=== PATIENT | female | born 1945 | race Caucasian/White ===

== ENCOUNTER 2019-01-18 16:01 | Emergency (ER) | payer MEDICARE, OTHER ==
[2019-01-18 16:45] VITALS: BP 179/83
--- NOTE | 2019-01-18 17:16 | UC ---
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 she states that in the humid weather, it is not uncommon for her legs and ankles to swell. The R is more swollen than the left. 2+ pitting edema in R ankle and 1+ in the L ankle. Denies any SOB, chest pain or pressure. also today, her systolic BP has been elevated. she started a new eye drop med for glaucoma-rocklatan and stopped Rhopressa on Monday01/14/19." -upon questioning she realizes that tthis happens with heat -she also realizes that she had pizza last night and sinhala food 2 nights ago. -denies CP/sob, no orthopnea, no PND. -swelling has decreased significantly since she has been here in the AC w/ legs elevated. -BP is always nml 120s/80s - History of Current Complaint Chief Complaint: UCGeneralIllness Stated Complaint: BILAT FEET SWELLING Time Seen by Provider: 01/18/19 17:01 Pain Intensity: 0 - Allergy/Home Medications Allergies/Adverse Reactions: Allergies Allergy/AdvReac Type Severity Reaction Status Date / Time acetazolamide Allergy See Comment Verified 01/18/19 16:58 brimonidine [From Alphagan P] Allergy See Comment Verified 01/18/19 16:58 dorzolamide Allergy See Comment Verified 01/18/19 16:58 Penicillins Allergy Unknown Verified 01/18/19 16:58 Reaction Details tetracycline Allergy Unknown Verified 01/18/19 16:58 Reaction Details pilocarpine AdvReac GI Upset Verified 01/18/19 16:58 procaine [From Novocain] AdvReac Shakes Verified 01/18/19 16:58 Home Medications: Home Medications Cholecalciferol (Vitamin D3) [Vitamin D3] 1,000 unit PO DAILY 01/18/19 [History Confirmed 01/18/19] Glucosam/Chondr/Collagn/Hyalur [Glucosamine & Chondroitin Cap] 1 cap PO DAILY [History Confirmed 01/18/19] Levothyroxine TAB* [Synthroid 25 MCG TAB*] 25 mg PO DAILY 01/18/19 [History Confirmed 01/18/19] Multivit with Calcium,Iron,Min [Multiple Vitamins For Women] 1 each PO DAILY [History Confirmed 01/18/19] Netarsudil Mesylat/Latanoprost [Rocklatan 0.02%-0.005% Eye Drp] 2.5 ml OP DAILY 01/18/19 [History Confirmed 01/18/19] Provostatin 20 mg PO DAILY 01/18/19 [History] Timolol 0.5% OPTH.KELLY* [Timoptic 0.5% Opth*] 1 drop BOTH EYES DAILY 01/18/19 [ History Confirmed 01/18/19] PMH/Surg Hx/FS Hx/Imm Hx Previously Healthy: Yes - Surgical History Surgical History: Yes Surgery Procedure, Year, and Place: L breast - Family History Known Family History: Positive: Hypertension - Social History Alcohol Use: None Substance Use Type: None Smoking Status (MU): Never Smoked Tobacco Review of Systems All Other Systems Reviewed And Are Negative: Yes Constitutional: Positive: Negative Skin: Positive: Negative Eyes: Positive: Negative ENT: Positive: Negative Respiratory: Positive: Negative Cardiovascular: Positive: Negative. Negative: Palpitations, Chest Pain Gastrointestinal: Positive: Negative Genitourinary: Positive: Negative Motor: Positive: Negative Neurovascular: Positive: Negative Musculoskeletal: Positive: Negative Neurological: Positive: Negative Psychological: Positive: Negative Is Patient Immunocompromised?: No Physical Exam Triage Information Reviewed: Yes Appearance: Well-Appearing, No Pain Distress, Well-Nourished - really very pleasant, great attitude. Vital Signs: Initial Vital Signs Temp 97.9 F 01/18/19 16:26 Pulse 56 01/18/19 16:26 Resp 16 01/18/19 16:26 BP 179/83 01/18/19 16:26 Pulse Ox 99 01/18/19 16:26 Vital Signs Reviewed: Yes Eye Exam: Normal ENT: Positive: Pharynx normal Neck exam: Normal Neck: Positive: Supple, Nontender, No Lymphadenopathy Respiratory Exam: Normal Respiratory: Positive: Chest non-tender, Lungs clear, Normal breath sounds, No respiratory distress, No accessory muscle use. Negative: Crackles, Rhonchi, Stridor, Wheezing Cardiovascular Exam: Normal Cardiovascular: Positive: RRR, No Murmur, Pulses Normal Abdominal Exam: Normal Abdomen Description: Positive: Soft Musculoskeletal: Positive: Edema @ - rt edema +1-2 mostly at ankle, left trace to +1. no erythema. cool. no dc. no weaping. CR brisk. Neurological Exam: Normal Psychological Exam: Normal Skin Exam: Normal Course/Dx - Course Course Of Treatment: Edema d/t excessive Na intake and excessive heat index - Differential Dx - Multi-Symptom Differential Diagnoses: Other - Diagnoses Provider Diagnosis: Edema Discharge - Sign-Out/Discharge Documenting (check all that apply): Patient Departure All imaging exams completed and their final reports reviewed: No Studies - Discharge Plan Condition: Stable Disposition: HOME Patient Education Materials: Leg Edema (ED) Referrals: Liyah Conklin PA [Primary Care Provider] - 1 Week Additional Instructions: The elevated blood pressure adn leg swelling is very likely due to the recent high salt intake and the excessive heat/humidity. Drink plenty of water, stay in cool AC and decrease salt intake. Continue to check your blood pressure and follow up with your PCP. Go to the ER if your blood pressure is excessively high > 190/100 again, you should go to the ER. -Your BP on recheck was 138/76 left arm, regular sized cuff. -avoid NSAIDs (ibuporfen.advil, aleve, naproxyn, etc bc they can raise your blood pressure too. - Billing Disposition and Condition Condition: STABLE Disposition: Home
== END 2019-01-18 17:48 | disposition home or self-care (01) ==
LOC: UCCORT 16:01
DX: E87.0 Hyperosmolality and hypernatremia (principal); T67.7XXA Heat edema, initial encounter; X30.XXXA Exposure to excessive natural heat, initial encounter; Y92.9 Unspecified place or not applicable
CPT/HCPCS: 93005; 99211; G0463